=== PATIENT | female | born 1965 | race Caucasian/White ===

== ENCOUNTER → 2016-06-19 | Outpatient (CLI) | payer MEDICARE, OTHER ==
--- NOTE | 2016-06-19 15:49 | KCIC ---
PROCEDURE Thoracic spine 3 views. HISTORY Lung cancer, back pain, lifting injury. FINDINGS There is a mild S-shaped thoracic scoliosis. No fractures are identified. There is mild midthoracic degenerative disc disease. Osteopenia is at least mild. There are postsurgical changes in the abdomen. IMPRESSION - No fractures. Mild mid thoracic degenerative disc disease. Electronically signed by: Dejan Aguirre (Jun 19, 2016 15:48:06)
== END | disposition home or self-care (01) ==
LOC: KCIC 14:50
PROVIDERS: ATTEND Anesthesiology
DX: M51.34 Other intervertebral disc degeneration, thoracic region (principal); M41.84 Other forms of scoliosis, thoracic region; M85.88 Other specified disorders of bone density and structure, other site; Z85.118 Personal history of other malignant neoplasm of bronchus and lung; Z87.828 Personal history of other (healed) physical injury and trauma
CPT/HCPCS: 72072